=== PATIENT | male | born 1970 | race Caucasian/White ===

== ENCOUNTER 2016-10-25 22:21 | Emergency (ER) | payer OTHER | END 2016-10-25 23:34 | disposition home or self-care (01) | LOC: FER 22:21 | DX: S83.92XA Sprain of unspecified site of left knee, initial encounter (principal); E11.9 Type 2 diabetes mellitus without complications; Z79.84 Long term (current) use of oral hypoglycemic drugs; X50.1XXA Overexertion from prolonged static or awkward postures, initial encounter; Y92.009 Unspecified place in unspecified non-institutional (private) residence as the place of occurrence of the external cause | CPT/HCPCS: 73564; J1100 ==

== ENCOUNTER 2020-05-29 12:27 | Emergency (ER) | payer OTHER ==
[~2020-05-29 12:27] MED LIST: BACTRIM DS TAB1 EACH PO; FEOSOL325 MG PO; GLUCOPHAGE850 MG PO; GLUCOTROL5 MG PO; KEFLEX500 MG PO; KLOR-CON M20 T20 MEQ PO; LIPITOR20 MG PO; MACROBID100 MG PO; METFORMIN HCL500 MG PO; NAPROXEN500 MG PO; NORCO 5-325 TA1 EACH PO; ONDANSETRON HCL4 MG PO; PRINIVIL10 MG PO; PRINIVIL20 MG PO; ROBAXIN500 MG PO
[2020-05-29 13:20] LABS: BASOPHIL 0.1 % (0-2); EOSINOPHIL 2.3 % (0-5); HCT 39.2 % (42.0-52.0); HGB 12.1 g/dl (13.2-18.0); LYMPHOCYTE 16.9 % (15-48); MCH 27.1 pg (25.0-31.0); MCHC 30.9 g/dL (32.0-36.0); MCV 87.7 fL (78.0-100.0); MONOCYTE 4.9 % (0-12); MPV 9.8 fL (6.0-9.5); NEUTROPHIL 75.4 % (41-80); NRBC 0; PLT 274 K/uL (150-400); RBC 4.47 M/uL (4.70-6.00); WBC 7.7 K/uL (4.0-10.5)
[2020-05-29 13:29] LABS: INR 1.18 (0.9-1.2); PROTHROMBIN TIME 14.2 SECONDS (11.4-13.6); PTT 26.9 SECONDS (22.2-34.7)
[2020-05-29 13:36] LABS: ALBUMIN 3.4 g/dL (3.4-5.0); BILIRUBIN - TOTAL 0.3 mg/dL (0.2-1.0); BUN/CREAT RATIO (CALC) 20.9 RATIO; CREATININE 0.86 mg/dL (0.67-1.17); GLOBULIN (CALCULATION) 3.9 g/dL; POTASSIUM 3.9 mmol/L (3.5-5.1); TOTAL PROTEIN 7.3 g/dL (6.4-8.2)
== END 2020-05-29 16:33 | disposition home or self-care (01) ==
LOC: FER 12:27
PROVIDERS: Emergency Medicine
DX: I10 Essential (primary) hypertension (principal); E11.9 Type 2 diabetes mellitus without complications; D64.9 Anemia, unspecified; Z79.899 Other long term (current) drug therapy
CPT/HCPCS: 36415; 71045; 80053; 84484; 85025; 85610; 85730; 93005; J1885; J2405

== ENCOUNTER 2021-04-14 17:56 | Emergency (ER) | payer OTHER ==
[~2021-04-14] VITALS: Ht 190.5 cm; Wt 129.3 kg
[2021-04-14] MEDS ORDERED: CYCLOBENZAPRINE10 MG PO (20:35)
[2021-04-14] MEDS ORDERED: IBUPROFEN800 MG PO (20:35)
[2021-04-14] MEDS ORDERED: PERCOCET 5-3251 EACH PO (20:35)
== END 2021-04-14 21:05 | disposition home or self-care (01) ==
LOC: FER 17:56
DX: M25.511 Pain in right shoulder (principal); I10 Essential (primary) hypertension; E11.9 Type 2 diabetes mellitus without complications; Z79.4 Long term (current) use of insulin
CPT/HCPCS: 73030; 96372; J1170; J1885